=== PATIENT | male | born 1970 | race Caucasian/White ===

== ENCOUNTER 2020-01-13 13:03 | Emergency (ER) | payer SELFPAY ==
--- NOTE | 2020-01-13 13:08 | ERPHSYRPT ---
- History of Present Illness Time Seen by Provider: 01/13/20 13:07 Source: patient Exam Limitations: no limitations Physician History: This is a 49-year-old white male who complains of a few day history of right arm numbness and progressively worsening dexterity in that extremity. initially, symptoms were intermittent and today were more constant. He has full range of motion. He is never had anything like this before. He was doing heavy lifting and mulch work recently and he does not know if this has contributed to his symptoms. He denies headache. He denies chest pain and he denies shortness of breath. He is not on any medications and he has no known drug allergies. Timing/Duration: day(s) (2) Severity: mild Character of Deficits: altered sensation, RUE (Numbness) Deficits: no difficulties Baseline/Normal Cognition: alert oriented x 3 Current Cognition: alert oriented x 3 Baseline Gait: walks w/o assistance Associated Symptoms: denies symptoms Allergies/Adverse Reactions: No Known Drug Allergies Allergy (Verified 01/13/20 13:19) Travel Risk - International Travel Have you traveled outside of the country in past 3 weeks: No - Coronavirus Screening Are you exhibiting any of the following symptoms?: No Close contact with a COVID-19 positive Pt in past 14-21 Days: No - Review of Systems Constitutional: No Symptoms Eyes: No Symptoms Ears, Nose, & Throat: No Symptoms Respiratory: No Symptoms Cardiac: No Symptoms Abdominal/Gastrointestinal: No Symptoms Musculoskeletal: No Symptoms Skin: No Symptoms Neurological: Parasthesia (Right upper extremity) Psychological: No Symptoms Endocrine: No Symptoms Hematologic/Lymphatic: No Symptoms Immunological/Allergic: No Symptoms All Other Systems: Reviewed and Negative - Past Medical History Pertinent Past Medical History: No Neurological History: No Pertinent History ENT History: No Pertinent History Cardiac History: No Pertinent History Respiratory History: No Pertinent History Endocrine Medical History: No Pertinent History Musculoskeletal History: No Pertinent History GI Medical History: No Pertinent History History: No Pertinent History Psycho-Social History: No Pertinent History - Past Surgical History Past Surgical History: No Neuro Surgical History: No Pertinent History Cardiac: No Pertinent History Respiratory: No Pertinent History Gastrointestinal: No Pertinent History Genitourinary: No Pertinent History Musculoskeletal: No Pertinent History - Nursing Vital Signs Nursing Vital Signs: Initial Vital Signs Temperature 98.4 F 01/13/20 13:12 Pulse Rate 73 01/13/20 13:12 Respiratory Rate 20 01/13/20 13:12 Blood Pressure 144/89 01/13/20 13:12 O2 Sat by Pulse Oximetry 99 01/13/20 13:12 Pain Scale Pain Intensity 0 - [place] Coma Scale Best Eye Response ([place]): (4) open spontaneously Best Verbal Response ([place]): (5) oriented Best Motor Response ([place]): (6) obeys commands [place] Total: 15 - Physical Exam General Appearance: no apparent distress, alert, anxiety Eye Exam: bilateral eye: normal inspection, PERRL, EOMI Ears, Nose, Throat Exam: normal ENT inspection, moist mucous membranes Neck Exam: normal inspection, non-tender, supple, full range of motion Respiratory: normal breath sounds, lungs clear, airway intact, No chest tenderness, No respiratory distress Cardiovascular: regular rate/rhythm, normal heart sounds, normal peripheral pulses Gastrointestinal: soft, normal bowel sounds, No tenderness Rectal Exam: not done Back Exam: normal inspection, normal range of motion, No CVA tenderness, No vertebral tenderness Extremity Exam: normal inspection, normal range of motion, pelvis stable Mental Status: alert, oriented x 3, cooperative manager demand Exam: normal hearing, normal speech, PERRL, No facial droop Coordination/Gait: normal finger to nose, normal gait, normal cerebellar function Skin Exam: normal color, warm, dry SpO2 Interpretation: normal O2 Delivery: Room Air - Course Nursing assessment & vital signs reviewed: Yes EKG Interpreted by Me: RATE (D1), Sinus Rhythm, NORMAL AXIS, NORMAL INTERVALS, NORMAL QRS, Other (No comparison EKG) Ordered Tests: Active Orders 24 hr Category Date Time Status EKG-ER Only STAT Care 01/13/20 13:08 Active IV Insertion STAT Care 01/13/20 13:08 Active NPO (ED) STAT Care 01/13/20 13:08 Active Pulse Oximetry (ED) STAT Care 01/13/20 13:08 Active House Regular Diet Diet 01/14/20 Breakfast Active CERVICAL SPINE WO CONTRAST [CT] Stat Exams 01/13/20 13:37 Completed HEAD WITHOUT CONTRAST [CT] Stat Exams 01/13/20 13:08 Completed MRI BRAIN W & W/O CONTRAST [MRI] Stat Exams 01/13/20 14:42 Completed CBC W DIFF Stat Lab 01/13/20 13:25 Completed CMP Stat Lab 01/13/20 13:25 Completed PROTIME WITH INR Stat Lab 01/13/20 13:25 Completed TROPONIN Q3H Lab 01/13/20 13:25 Completed TROPONIN Q3H Lab 01/13/20 16:45 Completed TROPONIN Q3H Lab 01/13/20 19:15 Ordered TROPONIN Q3H Lab 01/13/20 22:15 Ordered TROPONIN Q3H Lab 01/14/20 01:15 Ordered Medication Summary Discontinued Medications Generic Name Dose Route Start Last Admin Trade Name Freq PRN Reason Stop Dose Admin Dexamethasone Sodium Phosphate 10 mg 01/13/20 15:25 01/13/20 16:07 Decadron 4 Mg Inj IV 01/13/20 15:26 Not Given STAT ONE Dexamethasone Sodium Phosphate Confirm 01/13/20 16:00 Decadron 4 Mg Inj Administered 01/13/20 16:01 Dose 4 mg .ROUTE .STK-MED ONE Dexamethasone Sodium Phosphate Confirm 01/13/20 16:01 Decadron 10mg Inj. Administered 01/13/20 16:02 Dose 10 mg .ROUTE .STK-MED ONE Dexamethasone Sodium Phosphate 10 mg 01/13/20 16:07 01/13/20 16:09 Decadron 10mg Inj. IM 01/13/20 16:08 Not Given STAT ONE Dexamethasone Sodium Phosphate 10 mg 01/13/20 16:10 01/13/20 16:11 Decadron 10mg Inj. IV 01/13/20 16:11 10 mg STAT ONE Administration Lab/Rad Data: Laboratory Result Diagrams 01/13/20 13:25 01/13/20 13:25 Laboratory Results 01/13/20 01/13/20 01/13/20 Range/Units 16:45 13:25 13:25 WBC (4.0-10.5) K/mm3 RBC (4.1-5.4) M/mm3 Hgb (12.0-16.0) gm/dl Hct (35-47) % MCV (78-100) fl MCH (26-32) pg MCHC (32-36) g/dl RDW (11.5-14.0) % Plt Count (150-450) K/mm3 MPV (7.5-11.0) fl Gran % (36.0-66.0) % Eos # (Auto) (0-0.5) Absolute Lymphs (auto) (1.0-4.6) Absolute Monos (auto) (0.0-1.3) Lymphocytes % (24.0-44.0) % Monocytes % (0.0-12.0) % Eosinophils % (0.00-5.0) % Basophils % (0.0-0.4) % Absolute Granulocytes (1.4-6.9) Basophils # (0-0.4) PT 12.4 (8.83-12.87) SECONDS INR 1.10 (0.8-3.0) Sodium (137-145) mmol/L Potassium (3.5-5.1) mmol/L Chloride (98-107) mmol/L Carbon Dioxide (22-30) mmol/L Anion Gap (5-15) MEQ/L BUN (9-20) mg/dL Creatinine (0.66-1.25) mg/dL Estimated GFR ML/MIN Glucose (74-106) mg/dL Calcium (8.4-10.2) mg/dL Total Bilirubin (0.2-1.3) mg/dL AST (17-59) U/L ALT (0-50) U/L Alkaline Phosphatase (38-126) U/L Troponin I < 0.012 < 0.012 (0.000-0.034) ng/mL Serum Total Protein (6.3-8.2) g/dL Albumin (3.5-5.0) g/dL 01/13/20 01/13/20 Range/Units 13:25 13:25 WBC 7.9 (4.0-10.5) K/mm3 RBC 5.04 (4.1-5.4) M/mm3 Hgb 15.9 (12.0-16.0) gm/dl Hct 46.8 (35-47) % MCV 92.9 (78-100) fl MCH 31.5 (26-32) pg MCHC 34.0 (32-36) g/dl RDW 13.3 (11.5-14.0) % Plt Count 218 (150-450) K/mm3 MPV 11.4 H (7.5-11.0) fl Gran % 56.6 (36.0-66.0) % Eos # (Auto) 0.27 (0-0.5) Absolute Lymphs (auto) 2.52 (1.0-4.6) Absolute Monos (auto) 0.61 (0.0-1.3) Lymphocytes % 31.9 (24.0-44.0) % Monocytes % 7.7 (0.0-12.0) % Eosinophils % 3.4 (0.00-5.0) % Basophils % 0.4 (0.0-0.4) % Absolute Granulocytes 4.47 (1.4-6.9) Basophils # 0.03 (0-0.4) PT (8.83-12.87) SECONDS INR (0.8-3.0) Sodium 137 (137-145) mmol/L Potassium 3.7 (3.5-5.1) mmol/L Chloride 103 (98-107) mmol/L Carbon Dioxide 29 (22-30) mmol/L Anion Gap 9.4 (5-15) MEQ/L BUN 13 (9-20) mg/dL Creatinine 1.01 (0.66-1.25) mg/dL Estimated GFR > 60.0 ML/MIN Glucose 122 H (74-106) mg/dL Calcium 9.4 (8.4-10.2) mg/dL Total Bilirubin 0.60 (0.2-1.3) mg/dL AST 24 (17-59) U/L ALT 20 (0-50) U/L Alkaline Phosphatase 59 (38-126) U/L Troponin I (0.000-0.034) ng/mL Serum Total Protein 7.9 (6.3-8.2) g/dL Albumin 4.5 (3.5-5.0) g/dL - Progress Progress: unchanged, re-examined Progress Note: 01/13/20 14:07 CAT scan of the head without contrast reveals acute ischemia left parietal lobe with a 1 cm round focus of petechial parenchymal hemorrhage. There is no mass- effect or midline shift present. CAT scan of the cervical spine without contrast shows minimal C5-C7 degenerative changes. The remainder of the CT cervical spine is negative. 01/13/20 14:41 Medical decision making: This patient's CT scan of the head without contrast shows acute ischemia of the left parietal lobe and a 1 cm round focus of petechial parenchymal hemorrhage. The patient was evaluated by teleneurologist Donaldo Reyes. Dr. Reyes recommends an MRI of the brain with and without contrast first followed by 10 mg of intravenous dexamethasone. He he believes that the patient has some type of malignancy either primary versus metastatic. He recommends the intravenous steroids as well as inpatient evaluation and work- up. Dr. Reyes's cell number is [phone]. 01/13/20 17:[address] Bekah Mccoy, neurologist at [facility] in [place]. I reviewed the patient history, condition, vital signs, laboratory work-up as well as CAT scan and MRI findings of the brain. The MRI results of the brain with and without contrast shows small left parietal lobe enhancing subcortical mass. There is moderate surrounding vasogenic edema but no mass-effect or midline shift team. Mass measures 1 x 1.2 x 1.2 cm. He states that the patient does not need to be emergently transferred. However he states that the patient does need to be seen sooner rather than later and took the patient's contact information. The x-ray images have been loaded to the cloud to Long. Dr. Mccoy recommends 4 mg orally of dexamethasone [address] Mccoy stated that his office will contact the patient tomorrow to make arrangements for follow-up appointment. Dr. Mccoy office at [facility] is [phone] Counseled pt/family regarding: lab results, diagnosis, need for follow-up, rad results - Departure Departure Disposition: Home Clinical Impression: Intracranial mass Condition: Stable Critical Care Time: No Referrals: DOCTOR,NO FAMILY [Primary Care Provider] - Additional Instructions: Take medication as prescribed. Call Dr. Gerald Mccoy office tomorrow at :02 PM if you do not hear from his office prior to that time. Return to the emergency department if symptoms worsen. Prescriptions: Dexamethasone 4 mg [Decadron 4 MG] 4 mg PO TID #42 tablet
[2020-01-13 13:42] LABS: Absolute Neutrophil Ct (ANC) 4.47 (1.4-6.9); BASOPHIL % 0.4 % (0.0-0.4); Basophil (Absolute #) 0.03 (0-0.4); Eosinophil % 3.4 % (0.00-5.0); Eosinophil (Absolute #) 0.27 (0-0.5); Hematocrit 46.8 % (35-47); Hemoglobin 15.9 gm/dl (12.0-16.0); Lymphocyte (Absolute #) 2.52 (1.0-4.6); Lymphocytes % 31.9 % (24.0-44.0); Mean Cell Volume 92.9 fl (78-100); Mean Corpuscular Hemoglobin 31.5 pg (26-32); Mean Platelet Volume 11.4 fl (7.5-11.0); Monocyte (Absolute #) 0.61 (0.0-1.3); Monocytes % 7.7 % (0.0-12.0); Neutrophil % 56.6 % (36.0-66.0); Platelet Count 218 K/mm3 (150-450); Red Blood Count 5.04 M/mm3 (4.1-5.4); Red Cell Distribution Width 13.3 % (11.5-14.0); White Blood Count 7.9 K/mm3 (4.0-10.5)
--- NOTE | 2020-01-13 14:00 | XRAY ---
Indication: Right arm numbness and weakness. Multiple contiguous axial images obtained through the head without contrast. Comparison: None Left mid parietal lobe demonstrates 4.0 x 4.0 x 4.2 cm subcortical cytotoxic edema favoring acute ischemia with 1 cm round focus of petechial parenchymal hemorrhage. No mass effect/midline shift dating. Fourth ventricle is midline without hydrocephalus. Bony calvarium intact. Visualized paranasal sinuses and mastoid air cells are clear. Impression: Acute ischemia left parietal lobe with small focus parenchymal hemorrhage as detailed. Comment: Telephone report given to ordering clinician, Dr. Everett at 1351 hrs. on January 13, 2020.
--- NOTE | 2020-01-13 14:02 | XRAY ---
Indication: Right arm weakness and numbness. Multiple contiguous axial images obtained through the cervical spine. Sagittal and coronal reformatted images obtained. Comparison: None Axial images negative for acute fracture, suspicious bony lesions, or spinal canal stenosis. Very minimal C5-C7 degenerative endplate spurring. Sagittal and coronal reformatted images demonstrates normal alignment with minimal C6-C7 disc space narrowing. No acute compression fracture, subluxation, or jumped facet. Normal appearing craniocervical junction. Visualized noncontrasted soft tissues including lung apices are unremarkable. Impression: Minimal C5-C7 degenerative changes. Remaining CT cervical spine is negative.
[2020-01-13 14:03] LABS: INR 1.1 (0.8-3.0); PROTIME 12.4 SECONDS (8.83-12.87)
[2020-01-13 14:07] LABS: ALBUMIN 4.5 g/dL (3.5-5.0); ALKALINE PHOSPHATASE 59 U/L (38-126); ANION GAP 9.4 MEQ/L (5-15); BLOOD UREA NITROGEN 13 mg/dL (9-20); CHLORIDE 103 mmol/L (98-107); Calcium 9.4 mg/dL (8.4-10.2); Carbon Dioxide 29 mmol/L (22-30); Creatinine 1 1.01 mg/dL (0.66-1.25); EST GLOMERULAR FILTRATION RATE > 60.0 ML/MIN; Glucose 122 mg/dL (74-106); Potassium 3.7 mmol/L (3.5-5.1); SGOT/AST 24 U/L (17-59); SGPT/ALT 20 U/L (0-50); SODIUM 137 mmol/L (137-145); Total Protein 7.9 g/dL (6.3-8.2)
[2020-01-13 14:10] VITALS: O2SAT 98
[2020-01-13] MEDS ORDERED: Decadron 4 MG INJ IV ONE (15:25)
[2020-01-13] MEDS ORDERED: Decadron 4 MG INJ ONE (16:00)
[2020-01-13] MEDS ORDERED: DECADRON 10MG INJ. ONE (16:01)
[2020-01-13] MEDS ORDERED: DECADRON 10MG INJ. IM ONE (16:07)
[2020-01-13] MEDS ORDERED: DECADRON 10MG INJ. IV ONE (16:10)
--- NOTE | 2020-01-13 16:38 | XRAY ---
Indication: Right arm numbness and weakness. Sagittal, coronal, and axial MRI brain was performed using pre-and post T1, T2, FLAIR, diffusion, and ADC sequences. 15 cc Dotarem contrast used. Comparison: None Left mid parietal lobe demonstrates a enhancing subcortical mass near the vertex measuring 1.0 x 1.2 x 1.2 cm. There is moderate surrounding vasogenic edema but no mass effect or midline shifting. Diffusion images are negative for restricted signal. No acute intracranial hemorrhage, abnormal extra-axial fluid collection, or mass effect. Fourth ventricle is midline without hydrocephalus. 7/8 cranial nerve complex bilaterally symmetric. Normal flow void signal within the major intracerebral circulation. Normal appearing craniocervical junction and sella turcica. Paranasal sinuses are clear. Impression: Small left parietal lobe enhancing subcortical mass as detailed corresponding to the same day CT head abnormality. In retrospect, the petechial hemorrhage I reported on CT is more likely calcifications. Partial differential includes oligodendroglioma, low-grade astrocytoma, or solitary metastasis.
[2020-01-13 18:00] VITALS: BP 139/94; PULSE 88
== END 2020-01-13 18:05 | disposition home or self-care (01) ==
LOC: ED 13:03
DX: G93.89 Other specified disorders of brain (principal); R20.0 Anesthesia of skin
CPT/HCPCS: 36000; 36415; 70450; 70553; 72125; 80053; 84484; 85025; 85610; 93005; 94760; 96374; 99284; J1100

== ENCOUNTER 2020-03-18 20:32 | Emergency (ER) | payer SELFPAY ==
[2020-03-18] MEDS ORDERED: Sodium Chloride 0.9% 1000 ML 1,000 ML IV STA (20:34)
[2020-03-18] MEDS ORDERED: Sodium Chloride 0.9% 1000 ML 1,000 ML ONE (20:43)
[2020-03-18 21:00] LABS: Hematocrit 45.7 % (42-50); Hemoglobin 14.6 gm/dl (12.5-18.0); Mean Cell Volume 93.8 fl (78-100); Mean Corpuscular Hgb Concent. 31.9 g/dl (32-36); Mean Platelet Volume 10.6 fl (7.5-11.0); Platelet Count 163 K/mm3 (150-450); Red Blood Count 4.87 M/mm3 (4.1-5.6); Red Cell Distribution Width 14.3 % (11.5-14.0); White Blood Count 7.3 K/mm3 (4.0-10.5)
[2020-03-18 21:08] LABS: INR 1.01 (0.8-3.0); PROTIME 11.4 SECONDS (8.83-12.87)
[2020-03-18 21:10] LABS: PTT 29.2 SECONDS (24.1-36.1)
[2020-03-18 21:12] LABS: ALBUMIN 3.6 g/dL (3.5-5.0); ALKALINE PHOSPHATASE 58 U/L (38-126); ANION GAP 8.2 MEQ/L (5-15); BLOOD UREA NITROGEN 12 mg/dL (9-20); CHLORIDE 105 mmol/L (98-107); Calcium 8.9 mg/dL (8.4-10.2); Carbon Dioxide 25 mmol/L (22-30); Creatinine 1 0.83 mg/dL (0.66-1.25); EST GLOMERULAR FILTRATION RATE > 60.0 ML/MIN; Glucose 116 mg/dL (74-106); Potassium 3.9 mmol/L (3.5-5.1); SGOT/AST 28 U/L (17-59); SGPT/ALT 24 U/L (0-50); SODIUM 134 mmol/L (137-145); Total Protein 6.3 g/dL (6.3-8.2)
--- NOTE | 2020-03-18 21:12 | ERPHSYRPT ---
- History of Present Illness Time Seen by Provider: 03/18/20 20:50 Source: patient, EMS Exam Limitations: no limitations Patient Subjective Stated Complaint: Per EMS, patient experienced a single seizure at home witnessed by the patient's . Denied history of seizures. Triage Nursing Assessment: Patient reported being at home sitting in his re cliner when he felt a tingling in his hand and experienced an episode of tremors isolated to the right hand. Patient reported the next thing he remebers was waking up to his who said he had a seizure. Patient also reported having a mild headache located at the base of the head and radiating to the neck ongoing since yesterday. Patient reported recently having gamma knife surgery for treatment of a brain mass found in December of 2019. Patient denied any recent injuries, illness, or exposure to sick contacts. Denied headache, dizziness, visual/auditory disturbances, difficulty swallowing, chest pain, shortness of breath, nausea/vomiting, abdominal pain, numbness/tingling or gait disturbances. Head atraumatic normocephalic. pupils 3mm brisk direct and consensual reaction to light. EOMs intact without nystagmus or extra movement. Oral mucosa pink/moist without injury or obstruction. neck supple non-tender without JVD or palpable lymphadenopathy. Symmetrical chest expansion. Lungs clear to ausculation with adequate airflow throughout all [place] without adventitious sounds. heart tones tachycardic with regular rate and rhythm S1/S2 without extra sounds. Peripheral pulses +2 bilateral. Skin pink/warm/dry. Abdomen soft non- tender. Stregnth equal bilateral in upper and lower extremities. No noted unilateral neurological deficits or speech deficits. Physician History: Patient is a 50-year-old male with new onset seizure like activity. Was witnessed by at home. Patient was brought in by ambulance. 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 It was about 1 cm in size with 4 cm surrounding edema. Patient was started on dexamethasone and was allowed to follow-up outpatient. Patient saw in the interim neurologist, interventional radiologist and renal cancer specialist. It appears that the primary lesion is a renal cell carcinoma. There was always a risk of him developing seizures but they did not start him on any antiepileptics and decided to use dexamethasone to reduce the edema. Patient does mention that he felt a little run down over the last day or 2. He denies fever or any infectious-like symptoms. Patient did not have any incontinence or tongue biting from the seizures today. He did have a postictal state prior to arrival. Time of Onset/Last Time Seen Normal: Prior to arrival Timing/Duration: today Severity: severe Character of Deficits: other (seizure activity) Deficits: no difficulties Baseline/Normal Cognition: alert oriented x 3 Current Cognition: alert oriented x 3 Baseline Gait: walks w/o assistance Associated Symptoms: confusion, seizures Allergies/Adverse Reactions: No Known Drug Allergies Allergy (Verified 03/18/20 20:34) Hx Tetanus, Diphtheria Vaccination/Date Given: No Hx Influenza Vaccination/Date Given: No Hx Pneumococcal Vaccination/Date Given: No Travel Risk - International Travel Have you traveled outside of the country in past 3 weeks: No - Coronavirus Screening Are you exhibiting any of the following symptoms?: No Close contact with a COVID-19 positive Pt in past 14-21 Days: No - Review of Systems Constitutional: No Fever, No Chills Eyes: No Symptoms Ears, Nose, & Throat: No Symptoms Respiratory: No Cough, No Dyspnea Cardiac: No Chest Pain, No Edema, No Syncope Abdominal/Gastrointestinal: No Abdominal Pain, No Nausea, No Vomiting, No Diarrhea Genitourinary Symptoms: No Dysuria Musculoskeletal: Myalgias, No Back Pain, No Neck Pain Skin: No Rash Neurological: Seizure, No Dizziness, No Focal Weakness, No Sensory Changes Psychological: No Symptoms Endocrine: No Symptoms All Other Systems: Reviewed and Negative - Past Medical History Pertinent Past Medical History: No Neurological History: No Pertinent History ENT History: No Pertinent History Cardiac History: No Pertinent History Respiratory History: No Pertinent History Endocrine Medical History: No Pertinent History Musculoskeletal History: No Pertinent History GI Medical History: No Pertinent History History: Kidney Cancer Psycho-Social History: No Pertinent History - Past Surgical History Past Surgical History: Yes Neuro Surgical History: No Pertinent History Cardiac: No Pertinent History Respiratory: No Pertinent History Gastrointestinal: No Pertinent History Genitourinary: No Pertinent History Musculoskeletal: No Pertinent History Other Surgical History: Vasectomy - Social History Smoking Status: Former smoker How long have you smoked: years Exposure to second hand smoke: No Drug Use: none Patient Lives Alone: No - Nursing Vital Signs Nursing Vital Signs: Initial Vital Signs Temperature 98.9 F 03/18/20 20:32 Pulse Rate 99 H 03/18/20 20:32 Respiratory Rate 16 03/18/20 20:32 Blood Pressure 117/80 03/18/20 20:32 O2 Sat by Pulse Oximetry 98 03/18/20 20:32 Pain Scale Pain Intensity 0 - Briggs Coma Scale Best Eye Response (Joaquin): (4) open spontaneously Best Verbal Response (Briggs): (5) oriented Best Motor Response (Briggs): (6) obeys commands Briggs Total: 15 - Physical Exam General Appearance: no apparent distress, alert Eye Exam: bilateral eye: PERRL, EOMI Ears, Nose, Throat Exam: normal ENT inspection, moist mucous membranes Neck Exam: normal inspection, non-tender, supple Respiratory: normal breath sounds, lungs clear, airway intact, No respiratory distress Cardiovascular: regular rate/rhythm, No edema Gastrointestinal: soft, No tenderness, No distention Back Exam: normal inspection Extremity Exam: normal inspection, No pedal edema Mental Status: alert, oriented x 3 rn camp Exam: tongue midline Coordination/Gait: normal finger to nose, normal gait Motor/Sensory: no motor deficit, no sensory deficit Skin Exam: normal color, warm, dry, No rash SpO2 Interpretation: normal SpO2: 98 - Course Nursing assessment & vital signs reviewed: Yes EKG Interpreted by Me: RATE (100), Sinus Tach, NORMAL AXIS, NORMAL INTERVALS, NORMAL QRS - Radiology Exams Chest X-ray Interpretation: Discussed w/ radiologist, Negative - CT Exams Head CT Interpretation: Discussed w/radiologist, Other (Persistent 4 cm vasogenic edema noted on the left with 0.9 cm focal lesion. Appears unchanged.) Ordered Tests: Active Orders 24 hr Category Date Time Status Marketing Liaison STAT Care 03/18/20 20:35 Active EKG-ER Only STAT Care 03/18/20 20:34 Active IV Insertion STAT Care 03/18/20 20:37 Active Oxygen-ED Only Nasal Cannula 2 lpm Care 03/18/20 20:34 Active Seizure Precautions -SCCHED STAT Care 03/18/20 20:34 Active CHEST 2 VIEWS (PA AND LAT) Stat Exams 03/18/20 20:35 Completed HEAD WITHOUT CONTRAST [CT] Stat Exams 03/18/20 20:35 Completed BLOOD CULTURE Stat Lab 03/18/20 20:56 Received CBC W DIFF Stat Lab 03/18/20 20:56 Completed CMP Stat Lab 03/18/20 20:56 Completed Manual Differential NC Stat Lab 03/18/20 20:56 Completed PROTIME WITH INR Stat Lab 03/18/20 20:56 Completed PTT Stat Lab 03/18/20 20:56 Completed TROPONIN Q3H Lab 03/18/20 20:56 Completed TROPONIN Q3H Lab 03/18/20 23:45 Ordered UA W/RFX UR CULTURE Stat Lab 03/18/20 21:32 Completed Medication Summary Discontinued Medications Generic Name Dose Route Start Last Admin Trade Name Naya PRN Reason Stop Dose Admin Dexamethasone 4 mg 03/18/20 22:02 03/18/20 22:04 Decadron 4 Mg PO 03/18/20 22:03 Not Given ONCE ONE Dexamethasone Sodium Phosphate 4 mg 03/18/20 22:04 03/18/20 22:07 Decadron 4 Mg Inj IV 03/18/20 22:05 4 mg STAT ONE Administration Dexamethasone Sodium Phosphate Confirm 03/18/20 22:05 Decadron 4 Mg Inj Administered 03/18/20 22:06 Dose 4 mg .ROUTE .STK-MED ONE Sodium Chloride 1,000 mls @ 999 mls/hr 03/18/20 20:34 03/18/20 21:46 Sodium Chloride 0.9% 1000 Ml IV 03/18/20 21:34 Infused .Q1H1M STA Infusion Sodium Chloride Confirm 03/18/20 20:43 Sodium Chloride 0.9% 1000 Ml Administered 03/18/20 20:44 Dose 1,000 mls @ ud .ROUTE .STK-MED ONE Levetiracetam 500 mg/ Dextrose 105 mls @ 400 mls/hr 03/18/20 22:02 03/18/20 22:08 IV 03/18/20 22:17 400 mls/hr STAT ONE Administration Dextrose Confirm 03/18/20 22:06 D5w 100ml Mini Bag 100 Ml Administered 03/18/20 22:07 Dose 100 mls @ ud IV .STK-MED ONE Levetiracetam Confirm 03/18/20 22:05 Keppra 500 Mg/5 Ml Administered 03/18/20 22:06 Dose 500 mg .ROUTE .STK-MED ONE Lab/Rad Data: Laboratory Result Diagrams 03/18/20 20:56 03/18/20 20:56 Laboratory Results 03/18/20 03/18/20 03/18/20 Range/Units 21:32 20:56 20:56 WBC (4.0-10.5) K/mm3 RBC (4.1-5.6) M/mm3 Hgb (12.5-18.0) gm/dl Hct (42-50) % MCV (78-100) fl MCH (26-32) pg MCHC (32-36) g/dl RDW (11.5-14.0) % Plt Count (150-450) K/mm3 MPV (7.5-11.0) fl Segmented Neutrophils (36.-66.) % Band Neutrophils (0.0-2.0) % Lymphocytes (Manual) (24-44) % Monocytes (Manual) (0.0-12.0) % Eosinophils (Manual) (0.00-3.0) % Atypical Lymphocytes % Platelet Estimate (NORMAL) RBC Morphology PT 11.4 (8.83-12.87) SECONDS INR 1.01 (0.8-3.0) APTT 29.2 (24.1-36.1) SECONDS Sodium (137-145) mmol/L Potassium (3.5-5.1) mmol/L Chloride (98-107) mmol/L Carbon Dioxide (22-30) mmol/L Anion Gap (5-15) MEQ/L BUN (9-20) mg/dL Creatinine (0.66-1.25) mg/dL Estimated GFR ML/MIN Glucose (74-106) mg/dL Calcium (8.4-10.2) mg/dL Total Bilirubin (0.2-1.3) mg/dL AST (17-59) U/L ALT (0-50) U/L Alkaline Phosphatase (38-126) U/L Troponin I < 0.012 (0.000-0.034) ng/mL Serum Total Protein (6.3-8.2) g/dL Albumin (3.5-5.0) g/dL Urine Color YELLOW (YELLOW) Urine Appearance CLEAR (CLEAR) Urine pH 7.0 (5-6) Ur Specific [place] 1.013 (1.005-1.025) Urine Protein NEGATIVE (Negative) Urine Ketones TRACE (NEGATIVE) Urine Blood NEGATIVE (0-5) Orion/ul Urine Nitrite NEGATIVE (NEGATIVE) Urine Bilirubin NEGATIVE (NEGATIVE) Urine Urobilinogen NEGATIVE (0-1) mg/dL Ur Leukocyte Esterase NEGATIVE (NEGATIVE) Urine WBC (Auto) 0-2 (0-5) /HPF Urine RBC (Auto) 0-2 (0-2) /HPF U Hyaline Cast (Auto) 3-5 (0-2) /LPF U Epithel Cells (Auto) NONE (FEW) /HPF Urine Bacteria (Auto) NONE SEEN (NEGATIVE) /HPF Urine Mucus (Auto) SLIGHT (NEGATIVE) /HPF Urine Culture Reflexed NO (NO) Urine Glucose NEGATIVE (NEGATIVE) mg/dL 03/18/20 03/18/20 Range/Units 20:56 20:56 WBC 7.3 (4.0-10.5) K/mm3 RBC 4.87 (4.1-5.6) M/mm3 Hgb 14.6 (12.5-18.0) gm/dl Hct 45.7 (42-50) % MCV 93.8 (78-100) fl MCH 30.0 (26-32) pg MCHC 31.9 L (32-36) g/dl RDW 14.3 H (11.5-14.0) % Plt Count 163 (150-450) K/mm3 MPV 10.6 (7.5-11.0) fl Segmented Neutrophils 50 (36.-66.) % Band Neutrophils 3 H (0.0-2.0) % Lymphocytes (Manual) 25 (24-44) % Monocytes (Manual) 7 (0.0-12.0) % Eosinophils (Manual) 2 (0.00-3.0) % Atypical Lymphocytes 13 % Platelet Estimate NORMAL (NORMAL) RBC Morphology NORMAL PT (8.83-12.87) SECONDS INR (0.8-3.0) APTT (24.1-36.1) SECONDS Sodium 134 L (137-145) mmol/L Potassium 3.9 (3.5-5.1) mmol/L Chloride 105 (98-107) mmol/L Carbon Dioxide 25 (22-30) mmol/L Anion Gap 8.2 (5-15) MEQ/L BUN 12 (9-20) mg/dL Creatinine 0.83 (0.66-1.25) mg/dL Estimated GFR > 60.0 ML/MIN Glucose 116 H (74-106) mg/dL Calcium 8.9 (8.4-10.2) mg/dL Total Bilirubin 0.30 (0.2-1.3) mg/dL AST 28 (17-59) U/L ALT 24 (0-50) U/L Alkaline Phosphatase 58 (38-126) U/L Troponin I (0.000-0.034) ng/mL Serum Total Protein 6.3 (6.3-8.2) g/dL Albumin 3.6 (3.5-5.0) g/dL Urine Color (YELLOW) Urine Appearance (CLEAR) Urine pH (5-6) Ur Specific [place] (1.005-1.025) Urine Protein (Negative) Urine Ketones (NEGATIVE) Urine Blood (0-5) Orion/ul Urine Nitrite (NEGATIVE) Urine Bilirubin (NEGATIVE) Urine Urobilinogen (0-1) mg/dL Ur Leukocyte Esterase (NEGATIVE) Urine WBC (Auto) (0-5) /HPF Urine RBC (Auto) (0-2) /HPF U Hyaline Cast (Auto) (0-2) /LPF U Epithel Cells (Auto) (FEW) /HPF Urine Bacteria (Auto) (NEGATIVE) /HPF Urine Mucus (Auto) (NEGATIVE) /HPF Urine Culture Reflexed (NO) Urine Glucose (NEGATIVE) mg/dL - Progress Progress: improved Progress Note: 03/18/20 22:58 New onset seizure work-up. CT scan fairly unchanged from previous showing about 1 cm focal lesion with surrounding 4 cm edema. Labs unremarkable. Spoke to neurologist on-call at [facility]. Recommended Keppra 500 mg twice daily and possibly restarting patient's dexamethasone at his last dose. Advise close follow-up on Saturday with his neurologist. Will advise patient to call his neurologist at that time. Patient in agreement with disposition and plan. Patient given seizure precautions such as no driving. Will DC home with prescription of dexamethasone and Keppra. Discussed with Dr.: Other (Dr. Fernando, neuro at [facility]-start Keppra, restart sterioids, F/u Saturday with Dr. Tellez) Counseled pt/family regarding: lab results, diagnosis, need for follow-up, rad results - Departure Departure Disposition: Home Clinical Impression: Epileptic seizure, generalized, Intracranial edema, Intracranial mass Condition: Stable Critical Care Time: No Referrals: DOCTOR,NO FAMILY [Primary Care Provider] - Instructions: Seizures, Adult (DC) Additional Instructions: Seizure precautions. No driving until you see your neurologist. Take medication as prescribed. Stay hydrated and get good night sleep. Call your neurologist on Saturday for close follow-up. Return to ER if worse. Prescriptions: Dexamethasone 4 mg [Decadron 4 MG] 2 mg PO DAILY 20 Days #10 tablet Levetiracetam [Keppra 500 mg ] 500 mg PO BID 30 Days #60 tablet
[2020-03-18 21:53] LABS: Appearance CLEAR (CLEAR); Bilirubin NEGATIVE (NEGATIVE); Blood NEGATIVE Ery/ul (0-5); Glucose NEGATIVE (NEGATIVE); Ketones TRACE (NEGATIVE); Leukocyte Esterase NEGATIVE (NEGATIVE); Mucus SLIGHT /HPF (NEGATIVE); Nitrite NEGATIVE (NEGATIVE); Protein,Urine Dip NEGATIVE (Negative); RBC 0-2 /HPF (0-2); Specific Gravity 1.013 (1.005-1.025); Urobilinogen NEGATIVE mg/dL (0-1); WBC 0-2 /HPF (0-5)
[2020-03-18 21:54] LABS: Bacteria NONE SEEN /HPF (NEGATIVE)
[2020-03-18 21:59] LABS: ATYPICAL LYMPHS 13 %; BAND 3 % (0.0-2.0); Eosinophil 2 % (0.00-3.0); Lymphocytes 25 % (24-44); Monocyte 7 % (0.0-12.0); Neutrophils 50 % (36.-66.); Total Cells Counted 100
[2020-03-18 22:00] LABS: Platelet Estimate NORMAL (NORMAL)
[2020-03-18] MEDS ORDERED: Keppra 500 MG/5 ML*** 500 MG in D5w 100ML Mini Bag 100 ML 100 ML IV ONE (22:02)
[2020-03-18] MEDS ORDERED: Decadron 4 MG PO ONE (22:02)
[2020-03-18 22:04] VITALS: O2SAT 98
[2020-03-18] MEDS ORDERED: Decadron 4 MG INJ IV ONE (22:04)
[2020-03-18] MEDS ORDERED: Keppra 500 MG/5 ML ONE (22:05)
[2020-03-18] MEDS ORDERED: Decadron 4 MG INJ ONE (22:05)
[2020-03-18] MEDS ORDERED: D5w 100ML Mini Bag 100 ML 100 ML IV ONE (22:06)
--- NOTE | 2020-03-18 22:19 | XRAY ---
Indication: Seizure. History left-sided brain tumor diagnosed January 13, 2020. Status post Gamma knife surgery January 31, 2020. Multiple contiguous axial images obtained through the head without contrast. Comparison: January 13, 2020. Left mid parietal lobe near the vertex demonstrates stable 4 cm focus of vasogenic edema with subtle 9 mm hyperdense lesion. No acute hemorrhage, abnormal extra-axial fluid collection, or shifting. Fourth ventricle is midline without hydrocephalus. Bony calvarium intact. Visualized paranasal sinuses and mastoid air cells are clear. Impression: Grossly stable left mid parietal lobe focal vasogenic edema with subtle subcentimeter hyperdense lesion presumed known malignancy. MRI brain with contrast exam may yield further information. No new intracranial abnormalities. Comment: Preliminary interpretation was made by [facility]. No critical discrepancy.
--- NOTE | 2020-03-18 22:21 | XRAY ---
Indication: Seizure. History of brain and kidney cancer. Comparison: None AP/lateral chest obtained on cart is clear. Heart and mediastinal structures within normal limits. Bony thorax intact. Impression: Nonacute chest.
[2020-03-18 23:11] VITALS: BP 118/76; PULSE 82
== END 2020-03-18 22:58 | disposition home or self-care (01) ==
LOC: ED 20:32
DX: G40.802 Other epilepsy, not intractable, without status epilepticus (principal); G93.6 Cerebral edema; G93.89 Other specified disorders of brain
CPT/HCPCS: 36000; 36415; 70450; 71046; 80053; 81001; 84484; 85025; 85610; 85730; 87040; 93005; 93041; 96360; 96365; 96374; 99285; J1100; J1953

== ENCOUNTER 2020-07-11 12:53 | Emergency (ER) | payer OTHER ==
[2020-07-11 13:40] LABS: ANION GAP 13.7 MEQ/L (5-15); BLOOD UREA NITROGEN 16 mg/dL (9-20); CHLORIDE 103 mmol/L (98-107); Calcium 9.5 mg/dL (8.4-10.2); Carbon Dioxide 26 mmol/L (22-30); Creatinine 1 1.26 mg/dL (0.66-1.25); EST GLOMERULAR FILTRATION RATE > 60.0 ML/MIN; Glucose 124 mg/dL (74-106); Potassium 3.6 mmol/L (3.5-5.1); SODIUM 139 mmol/L (137-145)
--- NOTE | 2020-07-11 14:10 | ERPHSYRPT ---
- History of Present Illness Source: patient Patient Subjective Stated Complaint: Pt states "I just had a procedure on tumors on my brain and I am coming off the steroids and about three days ago I just started to have difficulty with my words. I cannot seem to make them work right." Triage Nursing Assessment: Pt presented alert and oriented X 3, skin pwd Pt ambulates with an upright steady gait, able to sepak in full sentences pt stumbling with words, speech is slow but he will eventually get the words out. Physician History: 50 yo wm w known brain mets due to RCC presents w difficulty concentrating/writing/expressive aphasia x 3-4 days. Pt has had Gamma Knife treatment x 2 w last 2 wks ago. Decadron stopped per oncologist 8 days ago and Ladd started 2 wks ago. Pt denies focal weakness/fever/N/V/D/cough/melena/hematochezia/dysuria/hematuria. Her is to star t immunotherapy in 3 days. Timing/Duration: other (3-4 days) Severity: mild Character of Deficits: other (Trouble concentrating/writing/ expressive aphasia) Baseline/Normal Cognition: alert oriented x 3 Current Cognition: alert oriented x 3 Associated Symptoms: confusion, No fatigue, No fever, No chills, No loss of consciousness, No nausea, No vomiting, No weakness, No insomnia, No muscle spasms, No numbness/tingling in legs/feet, No paresthesia, No ringing in ears, No seizures, No slurred speech Allergies/Adverse Reactions: No Known Drug Allergies Allergy (Verified 03/18/20 20:34) Home Medications: Hydrocodone/Acetaminophen [Hydrocodone-Acetamin 5-325 mg] 1 tab PO Q4HPRN PRN MDD 6 07/11/20 [History] Hx Tetanus, Diphtheria Vaccination/Date Given: No Hx Influenza Vaccination/Date Given: No Hx Pneumococcal Vaccination/Date Given: No Immunizations Up to Date: Yes Travel Risk - International Travel Have you traveled outside of the country in past 3 weeks: No - Coronavirus Screening Are you exhibiting any of the following symptoms?: No Close contact with a COVID-19 positive Pt in past 14-21 Days: No - Vaccine Status Have you recieved a Covid-19 vaccination: (had first shot) - Vaccination Dates Comment: had first shot of moderna - Review of Systems Constitutional: No Symptoms Eyes: No Symptoms Ears, Nose, & Throat: No Symptoms Respiratory: No Symptoms Cardiac: No Symptoms Abdominal/Gastrointestinal: No Symptoms Genitourinary Symptoms: No Symptoms Musculoskeletal: No Symptoms Skin: No Symptoms Psychological: No Symptoms Endocrine: No Symptoms Hematologic/Lymphatic: No Symptoms Immunological/Allergic: No Symptoms - Past Medical History Pertinent Past Medical History: Yes Neurological History: No Pertinent History ENT History: No Pertinent History Cardiac History: No Pertinent History Respiratory History: No Pertinent History Endocrine Medical History: No Pertinent History Musculoskeletal History: No Pertinent History GI Medical History: No Pertinent History History: Kidney Cancer Psycho-Social History: No Pertinent History - Past Surgical History Past Surgical History: Yes Neuro Surgical History: No Pertinent History Cardiac: No Pertinent History Respiratory: No Pertinent History Gastrointestinal: No Pertinent History Genitourinary: No Pertinent History Musculoskeletal: No Pertinent History Other Surgical History: Vasectomy - Social History Smoking Status: Former smoker How long have you smoked: years Exposure to second hand smoke: No Drug Use: none Patient Lives Alone: Yes Significant Family History: no pertinent family hx - Nursing Vital Signs Nursing Vital Signs: Initial Vital Signs Temperature 99.7 F 07/11/20 13:00 Pulse Rate 104 H 07/11/20 13:00 Respiratory Rate 22 07/11/20 13:00 Blood Pressure 122/90 07/11/20 13:00 O2 Sat by Pulse Oximetry 95 07/11/20 13:00 Pain Scale Pain Intensity 0 - Joaquin Coma Scale Best Eye Response (Joaquin): (4) open spontaneously Best Verbal Response (Mcintosh): (5) oriented Best Motor Response (Mcintosh): (6) obeys commands Joaquin Total: 15 - Physical Exam General Appearance: no apparent distress Eye Exam: bilateral eye: normal inspection, PERRL, EOMI Ears, Nose, Throat Exam: normal ENT inspection, TMs normal, pharynx normal, moist mucous membranes Neck Exam: normal inspection, non-tender, supple, full range of motion, No meningismus, No mass, No Brudzinski, No Kernig's, No carotid bruit Respiratory: normal breath sounds, lungs clear, airway intact Cardiovascular: regular rate/rhythm, normal heart sounds, normal peripheral pulses, murmur Gastrointestinal: soft, normal bowel sounds, No tenderness Back Exam: normal inspection, normal range of motion, No CVA tenderness, No vertebral tenderness Extremity Exam: normal inspection, normal range of motion Peripheral Pulses: carotid (R): 2+, carotid (L): 2+ Mental Status: alert, oriented x 3, cooperative, No agitated, 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 Exam: normal hearing, normal speech, PERRL, No abnormal eye position, No abnormal gag reflex, No abnormal pupil position, No abnormal speech, No facial a symmetry, No facial droop, No facial paresthesias, No facial weakness, No gaze palsy, No tongue deviation to R, No tongue deviation to L Coordination/Gait: normal finger to nose Motor/Sensory: no motor deficit, no sensory deficit, no pronator drift, negative Babinski's sign, No pronator drift (R), No pronator drift (L) DTR: bicep (R): 2+, bicep (L): 2+ Skin Exam: normal color SpO2 Interpretation: normal SpO2: 95 O2 Delivery: Room Air - Course Nursing assessment & vital signs reviewed: Yes EKG Interpreted by Me: RATE (NSR/R94/Mildly prolonged QTc/Poor baseline/No acute ST-T wave changes) Ordered Tests: Active Orders 24 hr Category Date Time Status EKG-ER Only STAT Care 07/11/20 13:27 Completed MRI BRAIN W/O CONTRAST [MRI] Stat Exams 07/11/20 13:19 Completed BMP Stat Lab 07/11/20 13:15 Completed CBC W DIFF Stat Lab 07/11/20 13:15 Completed CULTURE,URINE Stat Lab 07/11/20 15:05 Received Lactic Acid Stat Lab 07/11/20 13:25 Completed Manual Differential NC Stat Lab 07/11/20 13:15 Completed UA W/RFX UR CULTURE Stat Lab 07/11/20 15:05 Completed Medication Summary Discontinued Medications Generic Name Dose Route Start Last Admin Trade Name Freq PRN Reason Stop Dose Admin Dexamethasone Sodium Phosphate 10 mg 07/11/20 15:33 07/11/20 16:03 Decadron 10mg Inj. IV 07/11/20 15:34 10 mg STAT ONE Administration Dexamethasone Sodium Phosphate Confirm 07/11/20 16:02 Decadron 10mg Inj. Administered 07/11/20 16:03 Dose 10 mg .ROUTE .STK-MED ONE Lab/Rad Data: Laboratory Result Diagrams 07/11/20 13:15 07/11/20 13:15 Laboratory Results 07/11/20 07/11/20 07/11/20 Range/Units 15:05 13:25 13:15 WBC (4.0-10.5) K/mm3 RBC (4.1-5.6) M/mm3 Hgb (12.5-18.0) gm/dl Hct (42-50) % MCV (78-100) fl MCH (26-32) pg MCHC (32-36) g/dl RDW (11.5-14.0) % Plt Count (150-450) K/mm3 MPV (7.5-11.0) fl Segmented Neutrophils (36.-66.) % Band Neutrophils (0.0-2.0) % Lymphocytes (Manual) (24-44) % Monocytes (Manual) (0.0-12.0) % Platelet Estimate (NORMAL) RBC Morphology Sodium 139 (137-145) mmol/L Potassium 3.6 (3.5-5.1) mmol/L Chloride 103 (98-107) mmol/L Carbon Dioxide 26 (22-30) mmol/L Anion Gap 13.7 (5-15) MEQ/L BUN 16 (9-20) mg/dL Creatinine 1.26 H (0.66-1.25) mg/dL Estimated GFR > 60.0 ML/MIN Glucose 124 H (74-106) mg/dL Lactic Acid 1.8 (0.4-2.0) Calcium 9.5 (8.4-10.2) mg/dL Urine Color YELLOW (YELLOW) Urine Appearance SLIGHTLY CLOUDY (CLEAR) Urine pH 6.0 (5-6) Ur Specific [place] 1.028 (1.005-1.025) Urine Protein 30 (Negative) Urine Ketones NEGATIVE (NEGATIVE) Urine Blood SMALL (0-5) Orion/ul Urine Nitrite NEGATIVE (NEGATIVE) Urine Bilirubin NEGATIVE (NEGATIVE) Urine Urobilinogen 2 (0-1) mg/dL Ur Leukocyte Esterase NEGATIVE (NEGATIVE) Urine WBC (Auto) NONE (0-5) /HPF Urine RBC (Auto) 6-10 (0-2) /HPF U Epithel Cells (Auto) NONE (FEW) /HPF Urine Bacteria (Auto) NONE (NEGATIVE) /HPF Urine Mucus (Auto) SLIGHT (NEGATIVE) /HPF Urine Culture Reflexed YES (NO) Urine Glucose NEGATIVE (NEGATIVE) mg/dL 07/11/20 Range/Units 13:15 WBC 7.1 (4.0-10.5) K/mm3 RBC 5.28 (4.1-5.6) M/mm3 Hgb 15.5 (12.5-18.0) gm/dl Hct 48.8 (42-50) % MCV 92.4 (78-100) fl MCH 29.4 (26-32) pg MCHC 31.8 L (32-36) g/dl RDW 13.1 (11.5-14.0) % Plt Count 233 (150-450) K/mm3 MPV 11.3 H (7.5-11.0) fl Segmented Neutrophils 57 (36.-66.) % Band Neutrophils 2 (0.0-2.0) % Lymphocytes (Manual) 36 (24-44) % Monocytes (Manual) 5 (0.0-12.0) % Platelet Estimate NORMAL (NORMAL) RBC Morphology NORMAL Sodium (137-145) mmol/L Potassium (3.5-5.1) mmol/L Chloride (98-107) mmol/L Carbon Dioxide (22-30) mmol/L Anion Gap (5-15) MEQ/L BUN (9-20) mg/dL Creatinine (0.66-1.25) mg/dL Estimated GFR ML/MIN Glucose (74-106) mg/dL Lactic Acid (0.4-2.0) Calcium (8.4-10.2) mg/dL Urine Color (YELLOW) Urine Appearance (CLEAR) Urine pH (5-6) Ur Specific [place] (1.005-1.025) Urine Protein (Negative) Urine Ketones (NEGATIVE) Urine Blood (0-5) Orion/ul Urine Nitrite (NEGATIVE) Urine Bilirubin (NEGATIVE) Urine Urobilinogen (0-1) mg/dL Ur Leukocyte Esterase (NEGATIVE) Urine WBC (Auto) (0-5) /HPF Urine RBC (Auto) (0-2) /HPF U Epithel Cells (Auto) (FEW) /HPF Urine Bacteria (Auto) (NEGATIVE) /HPF Urine Mucus (Auto) (NEGATIVE) /HPF Urine Culture Reflexed (NO) Urine Glucose (NEGATIVE) mg/dL - Progress Progress Note: 07/12/20 00:47 MRI w new L parietal tumor/vasogenic edema/7mm mid-line shift/New R sided tumors x3 10mg IV Decadron Spoke w ashlie for Rad Onc at , said that could just send pt to ER tomorrow or possibly transfer pt. Spoke w pt's oncologist in , w [facility], wants pt admitted [facility] Pt stable wo focal deficit when care assumed by ambulance crew Counseled pt/family regarding: lab results, diagnosis, rad results - Departure Departure Disposition: Transfer Clinical Impression: Brain metastases, Intracranial mass Condition: Stable Critical Care Time: No Referrals: DOCTOR,NO FAMILY [Primary Care Provider] -
[2020-07-11 14:46] LABS: Hematocrit 48.8 % (42-50); Hemoglobin 15.5 gm/dl (12.5-18.0); Mean Cell Volume 92.4 fl (78-100); Mean Corpuscular Hemoglobin 29.4 pg (26-32); Mean Corpuscular Hgb Concent. 31.8 g/dl (32-36); Mean Platelet Volume 11.3 fl (7.5-11.0); Platelet Count 233 K/mm3 (150-450); Red Blood Count 5.28 M/mm3 (4.1-5.6); Red Cell Distribution Width 13.1 % (11.5-14.0); White Blood Count 7.1 K/mm3 (4.0-10.5)
[2020-07-11 15:16] LABS: Appearance SLIGHTLY CLOUDY (CLEAR); Bilirubin NEGATIVE (NEGATIVE); Blood SMALL Ery/ul (0-5); Glucose NEGATIVE (NEGATIVE); Ketones NEGATIVE (NEGATIVE); Leukocyte Esterase NEGATIVE (NEGATIVE); Mucus SLIGHT /HPF (NEGATIVE); Nitrite NEGATIVE (NEGATIVE); Protein,Urine Dip 30 (Negative); Specific Gravity 1.028 (1.005-1.025); Urobilinogen 2 mg/dL (0-1)
[2020-07-11 15:25] LABS: BAND 2 % (0.0-2.0); Lymphocytes 36 % (24-44); Monocyte 5 % (0.0-12.0); Neutrophils 57 % (36.-66.); Platelet Estimate NORMAL (NORMAL); Total Cells Counted 100
--- NOTE | 2020-07-11 15:31 | XRAY ---
Indication: New onset aphasia. History brain tumor with gamma knife surgery. Sagittal, coronal, and axial MRI brain performed without contrast using T1, T2, FLAIR, diffusion, and ADC sequences. Comparison: MRI brain with contrast exam January 13, 2020. Left parietal lobe demonstrates worsening vasogenic edema measuring at least 6.6 x 4.9 x 6.6 cm in greatest AP, transverse, and CC projections with new 1.4 cm round central nodule/mass and new 7 mm midline shifting. Right parietal lobe demonstrates 3 new periventricular rounded signal abnormalities appearing low signal on T1 and high signal on T2, largest anteriorly measuring 1 cm. Lack of IV contrast precludes further characterization of these above abnormalities. No acute intracranial hemorrhage, abnormal extra-axial fluid collection, or mass effect. Diffusion images are negative for restricted signal. Fourth ventricle is midline without hydrocephalus. 7/8 cranial nerve complex bilaterally symmetric. Normal flow void signal within the major intracerebral circulation. Normal appearing craniocervical junction and sella turcica. Visualized paranasal sinuses are clear. Impression: Interval worsening left parietal vasogenic edema with new midline shifting and new central nodule/mass as detailed. Also 3 new right periventricular rounded signal abnormalities. Lack of IV contrast precludes further characterization. Multiplicity and bilaterality is concerning for metastasis.
[2020-07-11] MEDS ORDERED: DECADRON 10MG INJ. IV ONE (15:33)
[2020-07-11] MEDS ORDERED: DECADRON 10MG INJ. ONE (16:02)
[2020-07-11 18:12] VITALS: BP 120/78; PULSE 82
[2020-07-12 00:52] VITALS: O2SAT 95
== END 2020-07-11 19:01 | disposition short-term general hospital (02) ==
LOC: ED 12:53
DX: C79.31 Secondary malignant neoplasm of brain (principal); R22.0 Localized swelling, mass and lump, head; Z98.890 Other specified postprocedural states
CPT/HCPCS: 36000; 36415; 70551; 80048; 81001; 83605; 85025; 87086; 93005; 96374; 99285; J1100